=== PATIENT | female | born 1990 ===

== ENCOUNTER 2023-06-07 11:10 | Outpatient (CLI) | payer BC, SELFPAY ==
[2023-06-07 18:05] LABS: Chlamydia DNA Amplified* Not Detected (No Detected); GC DNA Amplified* Not Detected (No Detected)
== END 2023-06-07 11:11 | disposition home or self-care (01) ==
PROVIDERS: Visit Provider Physician Assistant
DX: N92.0 Excessive and frequent menstruation with regular cycle (principal)
CPT/HCPCS: 84146; 84443; 84703; 87491; 87591

== ENCOUNTER 2023-06-12 08:33 | Outpatient (CLI) | payer BC, SELFPAY ==
--- NOTE | 2023-06-12 08:45 | CRLHL7_ITS ---
For Patients: As a result of the Cures Act, medical imaging exams and procedure reports are released immediately into your electronic medical record. You may view this report before your referring provider. If you have questions, please contact your health care provider. INDICATION: Irregular menses, disorder uterine bleeding COMPARISON: None. TECHNIQUE: TA: Multiple transverse and longitudinal transabdominal images of the pelvis are performed using the distended bladder as an acoustic window. Color-flow imaging of both ovaries is performed. FINDINGS: Reported last menstrual period: 05/12/2023. The uterus is normal in size and position and measures 7.4 x 3.5 x 4.5 cm. No uterine masses. The endometrial stripe measures 0.9 cm in double thickness. No endometrial masses. The cervix is normal. The right ovary measures 3.9 x 1.9 x 3.1 cm. Physiologic appearance without a dominant cystic lesion or solid ovarian/adnexal mass. There is normal arterial and venous color Doppler flow. The left ovary measures 4.3 x 2.5 x 2.6 cm. Physiologic appearance without a dominant cystic lesion or solid ovarian/adnexal mass. There is normal arterial and venous color Doppler flow. No free fluid. IMPRESSION: Normal pelvic ultrasound. Dictated by Ana Albright MD @ 06/13/2023 11:46:33 AM (Electronically Signed)
== END 2023-06-12 08:34 | disposition home or self-care (01) ==
LOC: US 08:33
PROVIDERS: Visit Provider Physician Assistant
DX: N93.9 Abnormal uterine and vaginal bleeding, unspecified (principal)
CPT/HCPCS: 76856